=== PATIENT | male | born 1965 | race Caucasian/White ===

== ENCOUNTER 2017-11-29 09:16 | Outpatient (CLI) | payer MEDICAID, OTHER ==
[~2017-11-29 09:16] MED LIST: NAPR-56 PO
== END 2017-11-29 10:10 | disposition home or self-care (01) ==
LOC: ORTHO 09:16
PROVIDERS: ATTEND Nurse Practitioner Family
DX: S52.131A Displaced fracture of neck of right radius, initial encounter for closed fracture (principal); S52.041A Displaced fracture of coronoid process of right ulna, initial encounter for closed fracture; M25.531 Pain in right wrist; I10 Essential (primary) hypertension; X58.XXXA Exposure to other specified factors, initial encounter; Y93.89 Activity, other specified; Y92.89 Other specified places as the place of occurrence of the external cause; Y99.8 Other external cause status
CPT/HCPCS: 29065; 73080; 73110; 99213; A4590

== ENCOUNTER 2018-01-10 09:03 | Outpatient (CLI) | payer MEDICAID ==
[2018-01-10 09:09] VITALS: BP 131/81
== END 2018-01-10 10:00 | disposition home or self-care (01) ==
LOC: ORTHO 09:03
PROVIDERS: ATTEND Nurse Practitioner Family
DX: S52.124A Nondisplaced fracture of head of right radius, initial encounter for closed fracture (principal); M19.031 Primary osteoarthritis, right wrist; E84.9 Cystic fibrosis, unspecified; I10 Essential (primary) hypertension; X58.XXXA Exposure to other specified factors, initial encounter; Y93.89 Activity, other specified; Y92.89 Other specified places as the place of occurrence of the external cause; Y99.8 Other external cause status
CPT/HCPCS: 73080; 73100; 99213; A6449

== ENCOUNTER 2018-02-21 09:42 | Outpatient (CLI) | payer MEDICAID | END 2018-02-21 10:40 | disposition home or self-care (01) | LOC: ORTHO 09:42 | PROVIDERS: ATTEND Nurse Practitioner Family | DX: S52.124D Nondisplaced fracture of head of right radius, subsequent encounter for closed fracture with routine healing (principal); S52.501D Unspecified fracture of the lower end of right radius, subsequent encounter for closed fracture with routine healing; I10 Essential (primary) hypertension; X58.XXXD Exposure to other specified factors, subsequent encounter | CPT/HCPCS: 73080; 73110; 99213 ==

== ENCOUNTER 2018-03-08 13:00 | Outpatient (CLI) | payer MEDICAID ==
[2018-03-08 13:19] VITALS: BP 137/84
== END 2018-03-08 13:36 | disposition home or self-care (01) ==
LOC: ORTHO 13:00
PROVIDERS: ATTEND Nurse Practitioner Family
DX: S52.124D Nondisplaced fracture of head of right radius, subsequent encounter for closed fracture with routine healing (principal); S52.501D Unspecified fracture of the lower end of right radius, subsequent encounter for closed fracture with routine healing; I10 Essential (primary) hypertension; Z72.89 Other problems related to lifestyle; V29.9XXD Motorcycle rider (driver) (passenger) injured in unspecified traffic accident, subsequent encounter
CPT/HCPCS: 73080; 99213

== ENCOUNTER 2018-07-10 05:17 | Emergency (ER) | payer MEDICAID ==
[~2018-07-10] VITALS: Ht 195.6 cm; Wt 102.3 kg
[2018-07-10] MEDS ORDERED: ondansetron 4mg rapidly disintigrating tab PO ONE ×2 (05:40→06:20)
[2018-07-10] MEDS ORDERED: ONDA8TAB9 PO (06:13)
[2018-07-10 06:44] VITALS: BP 144/93
== END 2018-07-10 07:31 | disposition home or self-care (01) ==
LOC: ER 05:18
DX: R11.2 Nausea with vomiting, unspecified (principal); R10.84 Generalized abdominal pain; R45.1 Restlessness and agitation; I10 Essential (primary) hypertension; F12.90 Cannabis use, unspecified, uncomplicated
CPT/HCPCS: 99283

== ENCOUNTER 2023-11-26 09:18 | Inpatient (IN) | payer MEDICAID ==
[2023-11-26] VITALS (14 sets, daily range): BP systolic 124–167; BP diastolic 84–107; PULSE 64–77; RESP 16–20; TEMP 97–98.3; O2SAT 98–100
[~2023-11-26] VITALS: Ht 195.6 cm; Wt 117.5 kg
[~2023-11-26 09:18] MED LIST changes: -NAPR-56 PO; +ONDA8TAB9 PO
[2023-11-26 10:33] LABS: ALBUMIN 3.7 G/DL (3.4-5.0); ANION GAP 9 (8-16); BLOOD UREA NITROGEN 13 MG/DL (7-18); BUN/CREATININE RATIO 10.3 (10.0-20.0); CALCIUM 8.8 MG/DL (8.5-10.1); CHLORIDE 98 MMOL/L (99-107); CREATININE 1.26 MG/DL (0.60-1.10); GLUCOSE 117 MG/DL (70-104); POTASSIUM 4.4 MMOL/L (3.5-5.1); SODIUM 134 MMOL/L (135-145); eCRCL 82 ML/MIN; eGFR 59 ML/MIN
[2023-11-26 10:37] LABS: BASOPHILS # (AUTO) 0.1 X10'3 (0-0.2); BASOPHILS % (AUTO) 1.9 % (0-1); EOSINOPHILS # (AUTO) 0.1 X10'3 (0-0.9); EOSINOPHILS % (AUTO) 3.4 % (0-6); LYMPHOCYTES # (AUTO) 0.6 X10'3 (1.1-4.8); LYMPHOCYTES % (AUTO) 18.6 % (21-51); MEAN CORPUSCULAR HEMOGLOBIN 32.7 PG (27.0-31.0); MEAN CORPUSCULAR HGB CONC 33.4 g/dL (33.0-36.5); MEAN CORPUSCULAR VOLUME 98.1 FL (78-98); MEAN PLATELET VOLUME 9.2 FL (7.4-10.4); MONOCYTES # (AUTO) 0.2 X10'3 (0-0.9); MONOCYTES % (AUTO) 5.9 % (2-12); NEUTROPHILS # (AUTO) 2.1 X10'3 (1.8-7.7); NEUTROPHILS % (AUTO) 70.2 % (42-75); PLATELET COUNT 258 X10'3 (140-440); RED BLOOD COUNT 2.06 X10'6 (4.70-6.10); RED CELL DISTRIBUTION WIDTH 22.3 % (11.5-14.5)
[2023-11-26 10:45] LABS: HEMATOCRIT 20.3 % (42.0-52.0); HEMOGLOBIN 6.8 g/dl (14.0-17.9)
[2023-11-26 11:15] LABS: ANISOCYTOSIS 3+; PLATELET ESTIMATE NORMAL
[2023-11-26 11:16] LABS: STOMATOCYTES FEW
[2023-11-26] MEDS: ondansetron/PF 4mg/2ml inj IV ONE (11:40)
[2023-11-26] MEDS: HYDROmorphone 1 mg/ml syringe IV ONE (11:41)
[2023-11-26 11:57] LABS: BILIRUBIN,URINE NEGATIVE (Neg); CLARITY,URINE CLEAR (Clear); GLUCOSE, URINE NEGATIVE (Neg); KETONES,URINE NEGATIVE (Neg); LEUKOCYTE ESTERASE ,URINE NEGATIVE (Neg); NITRITES, URINE NEGATIVE (Neg); OCCULT BLOOD,URINE NEGATIVE (Neg); PH,URINE 6.5 (4.8-8.0); PROTEIN,URINE NEGATIVE (Neg); UROBILINOGEN,URINE 0.2 E.U/dL (0.2-1.0)
[2023-11-26 12:08] LABS: COLOR,URINE STRAW (Yellow); UA COLLECTION TYPE NON-SPECIFIED
[2023-11-26 12:40] LABS: APTT 26 SECONDS (22-32); PROTHROMBIN TIME 11.2 SECONDS (9.0-12.0)
[2023-11-26] MEDS ORDERED: ondansetron/PF 4mg/2ml inj IV PRN (13:30)
[2023-11-26] MEDS ORDERED: pantoprazole 40mg IV 80 MG in normal saline 100ml IV soln 100 ML IV ONE (13:30)
[2023-11-26] MEDS ORDERED: potassium Cl 20 mEq SR tablet PO PRN ×2 (13:30)
[2023-11-26] MEDS ORDERED: magnesium 2GM in 50ml NS 50 ML IV PRN (13:30)
[2023-11-26] MEDS ORDERED: mag hydrox/Alum hydrox/simeth 30ml oral suspension PO PRN (13:30)
[2023-11-26] MEDS ORDERED: potassium Cl 40MEQ/1/2NS 520ml 520 ML IV PRN (13:30)
[2023-11-26] MEDS ORDERED: acetaminophen 325mg tablet PO PRN (13:30)
[2023-11-26] MEDS ORDERED: magnesium hydroxide 30ml (MOM) UD suspension PO PRN (13:30)
[2023-11-26] MEDS ORDERED: magnesium 4gm in 100ml NS 100 ML IV PRN (13:30)
[2023-11-26] MEDS: methadone 10mg tablet PO STA (13:36)
[2023-11-26] MEDS: lisinopril 10 MG tablet PO STA (13:36)
[2023-11-26] MEDS: oxyCODONE SR 10mg (sust. release) tab PO STA (13:37)
[2023-11-26 13:40] LABS: % IRON SATURATION 95 % (11-46); IRON 269 UG/DL (53-167); TOTAL IRON BINDING CAPACITY 284 UG/DL (259-388)
[2023-11-26] MEDS: normal saline 500ml IV soln 500 ML IV ONE (14:25)
[2023-11-26] MEDS ORDERED: iohexol 300mg/ml 100ml inj. ONE (14:33)
[2023-11-26] MEDS: normal saline 1000ml 1,000 ML IV SCH (15:42)
[2023-11-26] MEDS: pantoprazole 40 MG vial IV ONE (15:42)
[2023-11-26 15:43] LABS: OCCULT BLOOD STOOL NEGATIVE (Neg)
[2023-11-26] MEDS: pantoprazole 40MG/NS 100ML BAG 100 ML IV SCH (16:00)
[2023-11-26] MEDS ORDERED: FLO0.4C PO (17:55)
[2023-11-26] MEDS ORDERED: LEVO25TA7 PO (17:55)
[2023-11-26] MEDS ORDERED: METH-603 PO (17:55)
[2023-11-26] MEDS ORDERED: FLUT16SP26 (17:55)
[2023-11-26] MEDS ORDERED: OXYC20TA40 PO (17:55)
[2023-11-26] MEDS ORDERED: METO-384 PO (17:55)
[2023-11-26] MEDS ORDERED: LISI40TA13 PO (17:55)
[2023-11-26] MEDS ORDERED: CHOL20003 PO (17:55)
[2023-11-26] MEDS ORDERED: FERR-106 PO (17:55)
[2023-11-26] MEDS ORDERED: ESCI-8 PO (17:55)
[2023-11-26] MEDS ORDERED: ERGO500093 PO (17:55)
[2023-11-26] MEDS ORDERED: PANT40TA54 PO (17:55)
[2023-11-26] MEDS ORDERED: CLON0.1T2 PO (17:55)
[2023-11-26] MEDS: hydrALAZINE 20mg/ml inj. IV PRN (18:00)
[2023-11-26] MEDS: methadone 10mg tablet PO SCH (19:37)
[2023-11-26] MEDS: oxyCODONE/APAP 10/325mg tablet PO PRN (19:37)
[2023-11-26] MEDS: K and/or MAG REPLACEMENT MC SCH (20:00)
[2023-11-26] MEDS ORDERED: docusate sod 100mg capsule PO SCH (20:00)
[2023-11-27] VITALS (7 sets, daily range): BP systolic 132–173; BP diastolic 86–100; PULSE 64–75; RESP 12–18; TEMP 97.8–98.1; O2SAT 98–100
[2023-11-27 00:50] LABS: HEMOGLOBIN 7.4 g/dl (14.0-17.9); MEAN CORPUSCULAR HEMOGLOBIN 32.3 PG (27.0-31.0); MEAN PLATELET VOLUME 9.1 FL (7.4-10.4); PLATELET COUNT 195 X10'3 (140-440); RED BLOOD COUNT 2.28 X10'6 (4.70-6.10); WHITE BLOOD COUNT 3.2 X10'3 (4.5-11.0)
[2023-11-27 01:17] LABS: HEMATOCRIT 21.6 % (42.0-52.0)
[2023-11-27 06:42] LABS: BASOPHILS # (AUTO) 0.1 X10'3 (0-0.2); BASOPHILS % (AUTO) 2.1 % (0-1); EOSINOPHILS # (AUTO) 0.1 X10'3 (0-0.9); EOSINOPHILS % (AUTO) 3.7 % (0-6); HEMATOCRIT 22.2 % (42.0-52.0); HEMOGLOBIN 7.6 g/dl (14.0-17.9); LYMPHOCYTES # (AUTO) 0.9 X10'3 (1.1-4.8); LYMPHOCYTES % (AUTO) 31.8 % (21-51); MEAN CORPUSCULAR HEMOGLOBIN 32.6 PG (27.0-31.0); MEAN CORPUSCULAR HGB CONC 34.2 g/dL (33.0-36.5); MEAN CORPUSCULAR VOLUME 95.3 FL (78-98); MEAN PLATELET VOLUME 9.1 FL (7.4-10.4); MONOCYTES # (AUTO) 0.2 X10'3 (0-0.9); MONOCYTES % (AUTO) 7.9 % (2-12); NEUTROPHILS # (AUTO) 1.5 X10'3 (1.8-7.7); NEUTROPHILS % (AUTO) 54.5 % (42-75); PLATELET COUNT 196 X10'3 (140-440); RED BLOOD COUNT 2.33 X10'6 (4.70-6.10); RED CELL DISTRIBUTION WIDTH 22.3 % (11.5-14.5); WHITE BLOOD COUNT 2.7 X10'3 (4.5-11.0)
[2023-11-27 06:54] LABS: ALANINE AMINOTRANSFERASE 63 U/L (12-78); ALBUMIN 3.2 G/DL (3.4-5.0); ALBUMIN/GLOBULIN RATIO 0.9 (1.1-1.5); ALKALINE PHOSPHATASE 69 IU/L (46-116); ANION GAP 8 (8-16); ASPARTATE AMINO TRANSFERASE 32 U/L (10-37); BILIRUBIN,TOTAL 0.8 MG/DL (0.1-1.0); BLOOD UREA NITROGEN 12 MG/DL (7-18); BUN/CREATININE RATIO 8.7 (10.0-20.0); CALCIUM 8.5 MG/DL (8.5-10.1); CHLORIDE 102 MMOL/L (99-107); CREATININE 1.38 MG/DL (0.60-1.10); FERRITIN 575 NG/ML (26-388); GLUCOSE 100 MG/DL (70-104); MAGNESIUM 1.9 MG/DL (1.5-2.4); POTASSIUM 4.3 MMOL/L (3.5-5.1); SODIUM 137 MMOL/L (135-145); TOTAL CARBON DIOXIDE 27.5 MMOL/L (24-32); TOTAL PROTEIN 6.8 G/DL (6.4-8.2); eCRCL 74 ML/MIN; eGFR 53 ML/MIN
[2023-11-27 07:08] LABS: RED BLOOD COUNT 2.38 X10'6 (4.70-6.10); RETICULOCYTE % (AUTO) 1.2 % (0.5-1.5)
[2023-11-27 07:28] LABS: ANISOCYTOSIS 3+; PLATELET ESTIMATE NORMAL; TOTAL CELLS COUNTED 100
[2023-11-27 07:29] LABS: ELLIPTOCYTES FEW
[2023-11-27] MEDS: tamsulosin 0.4mg capsule PO SCH (07:31)
[2023-11-27] MEDS: levoTHYROXINE 25mcg tablet PO SCH (07:31)
[2023-11-27] MEDS: ESCITALOPRAM 10 mg tablet 10 MG TABLET PO SCH (07:33)
[2023-11-27] MEDS: metoprolol succinate 25mg (24-HOUR) SR. Tablet PO SCH (07:33)
[2023-11-27] MEDS: lisinopril 20mg tablet PO SCH (07:35)
[2023-11-27] MEDS: cholecalciferol (vitamin D3) 1,000 unit (25mcg) tablet PO SCH (07:36)
[2023-11-28 06:00] VITALS: BP 142/85; PULSE 71; RESP 13; TEMP 97.9; O2SAT 98
[2023-11-28 06:20] LABS: BASOPHILS # (AUTO) 0.1 X10'3 (0-0.2); BASOPHILS % (AUTO) 2.5 % (0-1); EOSINOPHILS # (AUTO) 0.1 X10'3 (0-0.9); EOSINOPHILS % (AUTO) 4.6 % (0-6); HEMOGLOBIN 7.4 g/dl (14.0-17.9); LYMPHOCYTES # (AUTO) 0.8 X10'3 (1.1-4.8); LYMPHOCYTES % (AUTO) 31.1 % (21-51); MEAN CORPUSCULAR HEMOGLOBIN 32.5 PG (27.0-31.0); MEAN CORPUSCULAR HGB CONC 34.1 g/dL (33.0-36.5); MEAN CORPUSCULAR VOLUME 95.5 FL (78-98); MEAN PLATELET VOLUME 9.5 FL (7.4-10.4); MONOCYTES # (AUTO) 0.2 X10'3 (0-0.9); MONOCYTES % (AUTO) 8.9 % (2-12); NEUTROPHILS # (AUTO) 1.4 X10'3 (1.8-7.7); NEUTROPHILS % (AUTO) 52.9 % (42-75); PLATELET COUNT 181 X10'3 (140-440); RED BLOOD COUNT 2.28 X10'6 (4.70-6.10); RED CELL DISTRIBUTION WIDTH 22.1 % (11.5-14.5); WHITE BLOOD COUNT 2.6 X10'3 (4.5-11.0)
[2023-11-28 06:25] LABS: ALANINE AMINOTRANSFERASE 58 U/L (12-78); ALBUMIN 3.1 G/DL (3.4-5.0); ALBUMIN/GLOBULIN RATIO 0.9 (1.1-1.5); ALKALINE PHOSPHATASE 68 IU/L (46-116); ANION GAP 8 (8-16); ASPARTATE AMINO TRANSFERASE 31 U/L (10-37); BILIRUBIN,TOTAL 0.5 MG/DL (0.1-1.0); BLOOD UREA NITROGEN 10 MG/DL (7-18); BUN/CREATININE RATIO 7.7 (10.0-20.0); CALCIUM 8.4 MG/DL (8.5-10.1); CHLORIDE 105 MMOL/L (99-107); GLUCOSE 97 MG/DL (70-104); POTASSIUM 3.9 MMOL/L (3.5-5.1); SODIUM 140 MMOL/L (135-145); TOTAL CARBON DIOXIDE 26.8 MMOL/L (24-32); TOTAL PROTEIN 6.4 G/DL (6.4-8.2); eCRCL 79 ML/MIN; eGFR 57 ML/MIN
[2023-11-28] MEDS: cloNIDine 0.1 mg tablet PO PRN (07:22)
[2023-11-28] MEDS: docusate sod 100mg capsule PO PRN (07:23)
[2023-11-28 07:53] LABS: HEMATOCRIT 21.8 % (42.0-52.0)
[2023-11-28 07:55] LABS: ANISOCYTOSIS 3+; ELLIPTOCYTES FEW; PLATELET ESTIMATE NORMAL; TOTAL CELLS COUNTED 100
[2023-11-28 07:56] LABS: TEAR DROP CELLS FEW
[2023-11-28 10:00] VITALS: BP 144/94; PULSE 73; RESP 12; TEMP 97.9; O2SAT 98
[2023-11-28] MEDS: ondansetron 4mg rapidly disintigrating tab PO PRN (10:12)
[2023-11-28 14:06] LABS: THYROID STIMULATING HORMONE 4.57 ulU/ml (0.34-4.50)
[2023-11-28 20:00] VITALS: RESP 14; O2SAT 97
[2023-11-28 23:00] VITALS: BP 141/79; PULSE 65; RESP 14; TEMP 99; O2SAT 97
[2023-11-29] VITALS (11 sets, daily range): BP systolic 113–142; BP diastolic 72–88; PULSE 55–68; RESP 12–20; TEMP 97.1–98.6; O2SAT 96–100
[2023-11-29 06:01] LABS: ALANINE AMINOTRANSFERASE 60 U/L (12-78); ALBUMIN 2.9 G/DL (3.4-5.0); ALBUMIN/GLOBULIN RATIO 0.8 (1.1-1.5); ALKALINE PHOSPHATASE 72 IU/L (46-116); ANION GAP 5 (8-16); ASPARTATE AMINO TRANSFERASE 33 U/L (10-37); BILIRUBIN,TOTAL 0.5 MG/DL (0.1-1.0); BLOOD UREA NITROGEN 9 MG/DL (7-18); BUN/CREATININE RATIO 6.6 (10.0-20.0); CALCIUM 8.1 MG/DL (8.5-10.1); CHLORIDE 103 MMOL/L (99-107); CREATININE 1.36 MG/DL (0.60-1.10); GLUCOSE 92 MG/DL (70-104); MAGNESIUM 1.7 MG/DL (1.5-2.4); SODIUM 135 MMOL/L (135-145); TOTAL CARBON DIOXIDE 26.9 MMOL/L (24-32); TOTAL PROTEIN 6.5 G/DL (6.4-8.2); eCRCL 76 ML/MIN; eGFR 54 ML/MIN
[2023-11-29 06:15] LABS: BASOPHILS # (AUTO) 0.1 X10'3 (0-0.2); EOSINOPHILS # (AUTO) 0.2 X10'3 (0-0.9); MEAN CORPUSCULAR HEMOGLOBIN 31.8 PG (27.0-31.0); MONOCYTES # (AUTO) 0.2 X10'3 (0-0.9); PLATELET COUNT 164 X10'3 (140-440); RED CELL DISTRIBUTION WIDTH 22.6 % (11.5-14.5); WHITE BLOOD COUNT 2.7 X10'3 (4.5-11.0)
[2023-11-29 06:17] LABS: BASOPHILS % (AUTO) 2.6 % (0-1); EOSINOPHILS % (AUTO) 5.7 % (0-6); HEMATOCRIT 22.2 % (42.0-52.0); HEMOGLOBIN 7.4 g/dl (14.0-17.9); MEAN CORPUSCULAR HGB CONC 33.2 g/dL (33.0-36.5); MEAN CORPUSCULAR VOLUME 95.9 FL (78-98); MEAN PLATELET VOLUME 9.5 FL (7.4-10.4); MONOCYTES % (AUTO) 7.8 % (2-12); NEUTROPHILS # (AUTO) 1.2 X10'3 (1.8-7.7); NEUTROPHILS % (AUTO) 46.9 % (42-75); RED BLOOD COUNT 2.31 X10'6 (4.70-6.10)
[2023-11-29 06:53] LABS: ANISOCYTOSIS 3+; PLATELET ESTIMATE NORMAL; TOTAL CELLS COUNTED 100
[2023-11-29 06:54] LABS: TEAR DROP CELLS FEW
[2023-11-29] MEDS ORDERED: ondansetron/PF 4mg/2ml inj IV PRN (11:35)
[2023-11-29] MEDS: proMETHazine 25mg tablet PO PRN (12:21)
[2023-11-30] VITALS (12 sets, daily range): BP systolic 139–191; BP diastolic 85–135; PULSE 60–88; RESP 16–18; TEMP 97.7–98.6; O2SAT 97–98
[2023-11-30 08:49] LABS: HEMOGLOBIN 7.3 g/dl (14.0-17.9)
[2023-11-30 08:51] LABS: MEAN CORPUSCULAR HEMOGLOBIN 32.2 PG (27.0-31.0); MEAN CORPUSCULAR HGB CONC 33.9 g/dL (33.0-36.5); MEAN CORPUSCULAR VOLUME 94.9 FL (78-98); MEAN PLATELET VOLUME 10.1 FL (7.4-10.4); PLATELET COUNT 148 X10'3 (140-440); RED BLOOD COUNT 2.28 X10'6 (4.70-6.10); RED CELL DISTRIBUTION WIDTH 21.6 % (11.5-14.5); WHITE BLOOD COUNT 2.6 X10'3 (4.5-11.0)
[2023-11-30 09:03] LABS: ALANINE AMINOTRANSFERASE 56 U/L (12-78); ALBUMIN 2.7 G/DL (3.4-5.0); ALBUMIN/GLOBULIN RATIO 0.8 (1.1-1.5); ALKALINE PHOSPHATASE 68 IU/L (46-116); ANION GAP 5 (8-16); ASPARTATE AMINO TRANSFERASE 26 U/L (10-37); BILIRUBIN,TOTAL 0.4 MG/DL (0.1-1.0); BLOOD UREA NITROGEN 11 MG/DL (7-18); CALCIUM 8.1 MG/DL (8.5-10.1); CHLORIDE 107 MMOL/L (99-107); CREATININE 1.38 MG/DL (0.60-1.10); GLUCOSE 85 MG/DL (70-104); MAGNESIUM 1.7 MG/DL (1.5-2.4); POTASSIUM 4.1 MMOL/L (3.5-5.1); SODIUM 140 MMOL/L (135-145); TOTAL CARBON DIOXIDE 28.4 MMOL/L (24-32); eCRCL 74 ML/MIN; eGFR 53 ML/MIN
[2023-11-30 09:14] LABS: HEMATOCRIT 21.7 % (42.0-52.0)
[2023-11-30 09:15] LABS: ANISOCYTOSIS 3+; PLATELET ESTIMATE NORMAL; ROULEAUX 1+; TEAR DROP CELLS FEW; TOTAL CELLS COUNTED 100
[2023-11-30] MEDS: LORazepam 1 MG tablet PO PRN (23:12)
[2023-12-01] VITALS (11 sets, daily range): BP systolic 124–176; BP diastolic 90–115; PULSE 76–98; RESP 13–20; TEMP 97.8–98.5; O2SAT 82–99
[2023-12-01 07:53] LABS: BASOPHILS % (AUTO) 0.5 % (0-1); EOSINOPHILS # (AUTO) 0.2 X10'3 (0-0.9); EOSINOPHILS % (AUTO) 5.4 % (0-6); HEMATOCRIT 26.6 % (42.0-52.0); HEMOGLOBIN 9.1 g/dl (14.0-17.9); LYMPHOCYTES # (AUTO) 0.7 X10'3 (1.1-4.8); LYMPHOCYTES % (AUTO) 23.6 % (21-51); MEAN CORPUSCULAR HEMOGLOBIN 32.2 PG (27.0-31.0); MEAN CORPUSCULAR HGB CONC 34.4 g/dL (33.0-36.5); MEAN CORPUSCULAR VOLUME 93.5 FL (78-98); MEAN PLATELET VOLUME 9.7 FL (7.4-10.4); MONOCYTES # (AUTO) 0.3 X10'3 (0-0.9); NEUTROPHILS # (AUTO) 1.7 X10'3 (1.8-7.7); NEUTROPHILS % (AUTO) 60.5 % (42-75); PLATELET COUNT 175 X10'3 (140-440); RED BLOOD COUNT 2.84 X10'6 (4.70-6.10); WHITE BLOOD COUNT 2.8 X10'3 (4.5-11.0)
[2023-12-01 08:06] LABS: ALANINE AMINOTRANSFERASE 50 U/L (12-78); ALBUMIN/GLOBULIN RATIO 0.8 (1.1-1.5); ALKALINE PHOSPHATASE 75 IU/L (46-116); ANION GAP 8 (8-16); ASPARTATE AMINO TRANSFERASE 13 U/L (10-37); BILIRUBIN,TOTAL 0.8 MG/DL (0.1-1.0); BLOOD UREA NITROGEN 9 MG/DL (7-18); CALCIUM 8.4 MG/DL (8.5-10.1); CHLORIDE 103 MMOL/L (99-107); CREATININE 1.28 MG/DL (0.60-1.10); GLUCOSE 86 MG/DL (70-104); MAGNESIUM 1.6 MG/DL (1.5-2.4); POTASSIUM 3.6 MMOL/L (3.5-5.1); SODIUM 138 MMOL/L (135-145); TOTAL CARBON DIOXIDE 27.1 MMOL/L (24-32); TOTAL PROTEIN 6.7 G/DL (6.4-8.2); eCRCL 80 ML/MIN; eGFR 58 ML/MIN
[2023-12-01 08:37] LABS: ANISOCYTOSIS 3+; PLATELET ESTIMATE NORMAL; TOTAL CELLS COUNTED 100
[2023-12-01 08:38] LABS: ELLIPTOCYTES FEW; POLYCHROMASIA FEW; TEAR DROP CELLS FEW
[2023-12-01] MEDS: acetaminophen 1,000mg/100ml IV 100 ML IV ONE (15:24)
[2023-12-01] MEDS: lactose-reduced food (Ensure Enlive) - 237ml bottle PO SCH (18:00)
[2023-12-01] MEDS: labetalol 20mg/4ml (5mg/ml) syringe IV ONE (18:08)
[2023-12-02 02:00] VITALS: BP 140/91; PULSE 77; RESP 18; TEMP 98.9; O2SAT 96
[2023-12-02 06:00] VITALS: BP 159/94; PULSE 89; RESP 16; TEMP 98.4; O2SAT 94
[2023-12-02 08:00] VITALS: RESP 16; O2SAT 94
[2023-12-02 08:21] VITALS: BP_SYST 159; PULSE 89
[2023-12-02] MEDS ORDERED: LORA2TAB96 PO (09:45)
[2023-12-02 10:12] VITALS: RESP 17
[2023-12-02] MEDS ORDERED: HYDR50TA65 PO (11:27)
[2023-12-02] MEDS ORDERED: PROM25TA14 PO (11:27)
== END 2023-12-02 11:32 | disposition home or self-care (01) | DRG 663 ==
LOC: ER 09:19 → ED HOLD 13:40 → ORTHO 4S 17:17 → PCU 3S 12-01 17:40
PROVIDERS: ADMIT Family Medicine; ATTEND Family Medicine
PROC: BW211ZZ Computerized Tomography (CT Scan) of Abdomen and Pelvis using Low Osmolar Contrast (ICD-10-PCS; principal; 2023-11-26)
PROC: 30233N1 Transfusion of Nonautologous Red Blood Cells into Peripheral Vein, Percutaneous Approach (ICD-10-PCS; 2023-11-26)
DX: D64.9 Anemia, unspecified (principal); N17.9 Acute kidney failure, unspecified; G62.9 Polyneuropathy, unspecified; G89.4 Chronic pain syndrome; I10 Essential (primary) hypertension; M50.30 Other cervical disc degeneration, unspecified cervical region; M25.561 Pain in right knee; F17.220 Nicotine dependence, chewing tobacco, uncomplicated; D72.819 Decreased white blood cell count, unspecified; G47.00 Insomnia, unspecified; Z80.8 Family history of malignant neoplasm of other organs or systems
CPT/HCPCS: 36415; 36430; 70450; 71045; 74177; 80048; 80053; 81003; 82272; 82728; 83010; 83540; 83550; 83735; 84443; 84466; 85007; 85008; 85025; 85027; 85045; 85610; 85730; 86885; 86900; 86901; 86920; 87081; 93005; 97162; 97530; 99291; 99292; C9113; G0378; J0131; J0360; J1170; J2405; J3490; J7030; J7040; P9016; Q0169; Q9967